=== PATIENT | female | born 1945 | race Caucasian/White ===

== ENCOUNTER 2019-11-28 07:58 | Emergency (ER) | payer MEDICAID, OTHER ==
--- NOTE | 2019-11-28 08:05 | EDM.PDOC ---
ED HPI GENERAL MEDICAL PROBLEM - General Stated Complaint: PAIN IN MID BACK Time Seen by Provider: 11/28/19 08:04 - History of Present Illness INITIAL COMMENTS - FREE TEXT/NARRATIVE: History of present illness: []Patient presents with some right thoracic back pain that is been present for 3 days. She denies any falls or is been no fever chills or cough no difficulty breathing no leg pain or leg swelling movement makes it worse being still makes it better she is tried some Tylenol without any relief. The patient states it is spasm type pain she also tried a massage which did not help. Review of systems: As per history of present illness and below otherwise all systems reviewed and negative. Past medical history: As per history of present illness and as reviewed below otherwise noncontributory. Surgical history: As per history of present illness and as reviewed below otherwise noncontributory. Social history: No reported history of drug or alcohol abuse. Family history: As per history of present illness and as reviewed below otherwise noncontributory. Physical exam: HEENT: Atraumatic, normocephalic, pupils reactive, negative for conjunctival pallor or scleral icterus, mucous membranes moist, throat clear, neck supple, nontender, trachea midline. Lungs: Clear to auscultation, breath sounds equal bilaterally, chest nontender. Heart: S1S2, regular, negative for clicks, rubs, or JVD. No tachycardia Abdomen: Soft, nondistended, nontender. Negative for masses or hepatosplenomegaly. Negative for costovertebral tenderness. Pelvis: Stable nontender. Genitourinary: Deferred. Rectal: Deferred. Extremities: Atraumatic, negative for cords or calf pain. Neurovascular unremarkable. No calf pain no swelling negative Homans sign Neuro: Awake, alert, oriented. Cranial nerves II through XII unremarkable. C erebellum unremarkable. Motor and sensory unremarkable throughout. Exam nonfocal. Back: There is palpable spasm in the paraspinal musculature at the level of T9 and 10 there is no midline tenderness at any level Diagnostics: [] Therapeutics: [] Impression: Thoracic strain [] Plan: Patient will receive 2 mg of Valium in the ED and some Motrin. She be discharged home on Flexeril and a low-dose meloxicam. Follow-up with primary care [] Definitive disposition and diagnosis as appropriate pending reevaluation and review of above. Right Shoulder Pain Score (Numeric/FACES): 8 - Related Data Allergies Allergy/AdvReac Type Severity Reaction Status Date / Time Penicillins Allergy Rash Verified 11/28/19 08:25 Home Meds: Home Meds Cyclobenzaprine [Flexeril] 10 mg PO TID #21 tab 11/28/19 [Rx] Losartan [Cozaar] 100 mg PO DAILY 11/28/19 [History] Meloxicam [Mobic] 7.5 mg PO DAILY 7 Days #7 tablet 11/28/19 [Rx] Montelukast [Singulair] 10 mg PO DAILY 11/28/19 [History] Omeprazole 40 mg PO DAILY 11/28/19 [History] Rosuvastatin [Crestor] 20 mg PO DAILY 11/28/19 [History] buPROPion [Wellbutrin SR] 300 mg PO DAILY 11/28/19 [History] metFORMIN [Glucophage] 500 mg PO BID 11/28/19 [History] ED ROS GENERAL - Review of Systems Review Of Systems: See Below ED EXAM, GENERAL - Physical Exam Exam: See Below Course - Vital Signs Last Recorded V/S: Last Vital Signs Temp 36.5 C 11/28/19 08:16 Pulse 92 11/28/19 08:16 Resp 18 11/28/19 08:16 BP 148/82 H 11/28/19 08:16 Pulse Ox 98 11/28/19 08:16 - Orders/Labs/Meds Meds: Medications Discontinued Medications Generic Name Dose Route Start Last Admin Trade Name Freq PRN Reason Stop Dose Admin Diazepam 2 mg 11/28/19 08:23 Valium PO 11/28/19 08:24 ONETIME ONE Ibuprofen 800 mg 11/28/19 08:23 Motrin PO 11/28/19 08:24 ONETIME ONE Departure - Departure Time of Disposition: 08:29 Disposition: Home, Self-Care 01 Condition: Good Clinical Impression: Thoracic myofascial strain - Discharge Information *PRESCRIPTION DRUG MONITORING PROGRAM REVIEWED*: Not Applicable *COPY OF PRESCRIPTION DRUG MONITORING REPORT IN PATIENT KRIS: Not Applicable Prescriptions: Cyclobenzaprine [Flexeril] 10 mg PO TID #21 tab Meloxicam [Mobic] 7.5 mg PO DAILY 7 Days #7 tablet Instructions: Acute Back Pain, Adult Additional Instructions: The following information is given to patients seen in the emergency department who are being discharged to home. This information is to outline your options for follow-up care. We provide all patients seen in our emergency department with a follow-up referral. The need for follow-up, as well as the timing and circumstances, are variable depending upon the specifics of your emergency department visit. If you don't have a primary care physician on staff, we will provide you with a referral. We always advise you to contact your personal physician following an emergency department visit to inform them of the circumstance of the visit and for follow-up with them and/or the need for any referrals to a consulting specialist. The emergency department will also refer you to a specialist when appropriate. This referral assures that you have the opportunity for follow-up care with a specialist. All of these measure are taken in an effort to provide you with optimal care, which includes your follow-up. Under all circumstances we always encourage you to contact your private physician who remains a resource for coordinating your care. When calling for follow-up care, please make the office aware that this follow-up is from your recent emergency room visit. If for any reason you are refused follow-up, please contact the [facility] Emergency Department at and asked to speak to the emergency department charge nurse. Sepsis Event Note (ED) - Focused Exam Vital Signs: Vital Signs Temp Pulse Resp BP Pulse Ox 11/28/19 08:16 36.5 C 92 18 148/82 H 98
[2019-11-28] MEDS ORDERED: Diazepam 2 MG Tab PO ONE (08:23)
[2019-11-28] MEDS ORDERED: Ibuprofen 800 MG Tab PO ONE (08:23)
== END 2019-11-28 08:52 | disposition home or self-care (01) ==
LOC: MW.ED 07:58
DX: S29.012A Strain of muscle and tendon of back wall of thorax, initial encounter (principal); Z88.0 Allergy status to penicillin; Z79.899 Other long term (current) drug therapy; X58.XXXA Exposure to other specified factors, initial encounter
CPT/HCPCS: 99283; A9270

== ENCOUNTER 2021-01-24 20:53 | Emergency (ER) | payer MEDICAID, OTHER ==
[2021-01-24] MEDS ORDERED: Dexamethasone 10 MG/ML SDV IVPUSH ONE (21:07)
--- NOTE | 2021-01-24 21:10 | EDM.PDOC ---
ED HPI GENERAL MEDICAL PROBLEM - General Chief Complaint: Chest Pain Stated Complaint: FAST HEART RATE, SHORT OF BREATH Time Seen by Provider: 01/24/21 20:55 Source of Information: Reports: Patient History Limitations: Reports: No Limitations - History of Present Illness INITIAL COMMENTS - FREE TEXT/NARRATIVE: Patient is a 75-year-old female history of diabetes high blood pressure and COPD presents today for shortness of breath. Patient says she also felt some palpitations felt her heart was beating faster than normal prompting her to come in. States she had some pressure-like feeling in her chest but denies any pain. Patient denies any cough fever chills at this tachycardic and short of breath came on very suddenly. Patient denies any abdominal pain nausea vomiting or urinary symptoms. Chest Pain Score (Numeric/FACES): 3 - Related Data Allergies Allergy/AdvReac Type Severity Reaction Status Date / Time Penicillins Allergy Rash Verified 01/24/21 21:02 Home Meds: Home Meds Cyclobenzaprine [Flexeril] 10 mg PO TID #21 tab 11/28/19 [Rx] Losartan [Cozaar] 100 mg PO DAILY 11/28/19 [History] Meloxicam [Mobic] 7.5 mg PO DAILY 7 Days #7 tablet 11/28/19 [Rx] Montelukast [Singulair] 10 mg PO DAILY 11/28/19 [History] Omeprazole 40 mg PO DAILY 11/28/19 [History] Rosuvastatin [Crestor] 20 mg PO DAILY 11/28/19 [History] buPROPion [Wellbutrin SR] 300 mg PO DAILY 11/28/19 [History] hydroCHLOROthiazide [Hydrochlorothiazide] 25 mg PO DAILY 11/28/19 [History] metFORMIN [Glucophage] 500 mg PO BID 11/28/19 [History] Past Medical History HEENT History: Reports: None Cardiovascular History: Reports: Hypertension Respiratory History: Reports: COPD Gastrointestinal History: Reports: None Genitourinary History: Reports: None [employer] History: Reports: None Musculoskeletal History: Reports: None Neurological History: Reports: None Psychiatric History: Reports: None Endocrine/Metabolic History: Reports: Diabetes, Type II Hematologic History: Reports: None Immunologic History: Reports: None Oncologic (Cancer) History: Reports: Renal Dermatologic History: Reports: None - Infectious Disease History Infectious Disease History: Reports: Chicken Pox, Measles Social & Family History - Tobacco Use Second Hand Smoke Exposure: No - Caffeine Use Caffeine Use: Reports: None - Recreational Drug Use Recreational Drug Use: No ED ROS GENERAL - Review of Systems Review Of Systems: See Below Constitutional: Reports: No Symptoms HEENT: Reports: No Symptoms Respiratory: Reports: Shortness of Breath Cardiovascular: Reports: Palpitations Endocrine: Reports: No Symptoms GI/Abdominal: Reports: No Symptoms : Reports: No Symptoms Musculoskeletal: Reports: No Symptoms Skin: Reports: No Symptoms Neurological: Reports: No Symptoms Psychiatric: Reports: No Symptoms Hematologic/Lymphatic: Reports: No Symptoms Immunologic: Reports: No Symptoms ED EXAM, GENERAL - Physical Exam Exam: See Below Exam Limited By: No Limitations General Appearance: Alert, WD/WN, No Apparent Distress Ears: Normal External Exam Nose: Normal Inspection Throat/Mouth: Normal Inspection Head: Atraumatic, Normocephalic Neck: Normal Inspection Respiratory/Chest: Lungs Clear, Normal Breath Sounds Cardiovascular: Normal Peripheral Pulses, Regular Rate, Rhythm, No Edema GI/Abdominal: Normal Bowel Sounds, Soft, Non-Tender Back Exam: Normal Inspection Extremities: Normal Inspection, Normal Range of Motion Neurological: Alert, Oriented, Normal Cognition, Normal Gait #1 Interpretation EKG Date: 01/24/21 Time: 21:00 Rhythm: Other (sinus tachy) Rate (Beats/Min): 119 ST-T: Normal Course - Vital Signs Last Recorded V/S: Last Vital Signs Temp 97.8 F 01/24/21 20:59 Pulse 106 H 01/24/21 22:45 Resp 16 01/24/21 22:45 BP 169/65 H 01/24/21 22:45 Pulse Ox 91 L 01/24/21 22:45 - Orders/Labs/Meds Orders: Active Orders 24 hr Category Date Time Status RT Aerosol Therapy [RC] ASDIRECTED Care 01/24/21 23:01 Active Labs: Laboratory Tests 01/24/21 01/24/21 01/24/21 Range/Units 21:00 21:00 21:00 WBC 10.29 (4.0-11.0) K/uL RBC 4.45 (4.30-5.90) M/uL Hgb 12.4 (12.0-16.0) g/dL Hct 37.6 (36.0-46.0) % MCV 84.5 (80.0-98.0) fL MCH 27.9 (27.0-32.0) pg MCHC 33.0 (31.0-37.0) g/dL RDW Std Deviation 42.2 (28.0-62.0) fl RDW Coeff of Denise 14 (11.0-15.0) % Plt Count 302 (150-400) K/uL MPV 10.90 (7.40-12.00) fL Neut % (Auto) 64.1 (48.0-80.0) % Lymph % (Auto) 24.6 (16.0-40.0) % [place] % (Auto) 7.7 (0.0-15.0) % Eos % (Auto) 3.1 (0.0-7.0) % Baso % (Auto) 0.5 (0.0-1.5) % Neut # (Auto) 6.6 H (1.4-5.7) K/uL Lymph # (Auto) 2.5 H (0.6-2.4) K/uL [place] # (Auto) 0.8 (0.0-0.8) K/uL Eos # (Auto) 0.3 (0.0-0.7) K/uL Baso # (Auto) 0.1 (0.0-0.1) K/uL Nucleated RBC % 0.0 /100WBC Nucleated RBCs # 0 K/uL INR 1.00 APTT 22.5 (18.6-31.3) SEC D-Dimer, Quantitative 0.35 (0.0-0.50) mg/L FEU Sodium 138 (136-145) mmol/L Potassium 4.4 (3.5-5.1) mmol/L Chloride 101 (98-107) mmol/L Carbon Dioxide 28.4 (21.0-32.0) mmol/L BUN 20 H (7.0-18.0) mg/dL Creatinine 1.2 H (0.6-1.0) mg/dL Est Cr Clr Drug Dosing 32.53 mL/min Estimated GFR (MDRD) 43.9 ml/min Glucose 180 H (74-106) mg/dL Lactic Acid (0.4-2.0) mmol/L Calcium 9.0 (8.5-10.1) mg/dL Phosphorus 4.1 (2.6-4.7) mg/dL Magnesium 1.3 L (1.8-2.4) mg/dL Total Bilirubin 0.2 (0.2-1.0) mg/dL AST 11 L (15-37) IU/L ALT 23 (14-63) IU/L Alkaline Phosphatase 99 (46-116) U/L Creatine Kinase 42 (26-308) U/L Troponin I < 0.050 (0.000-0.056) ng/mL Total Protein 7.2 (6.4-8.2) g/dL Albumin 3.7 (3.4-5.0) g/dL Globulin 3.5 (2.6-4.0) g/dL Albumin/Globulin Ratio 1.1 (0.9-1.6) Lipase 270 (73-393) U/L SARS-CoV-2 RNA ([place]) (NEGATIVE) 01/24/21 01/24/21 Range/Units 21:04 21:15 WBC (4.0-11.0) K/uL RBC (4.30-5.90) M/uL Hgb (12.0-16.0) g/dL Hct (36.0-46.0) % MCV (80.0-98.0) fL MCH (27.0-32.0) pg MCHC (31.0-37.0) g/dL RDW Std Deviation (28.0-62.0) fl RDW Coeff of Denise (11.0-15.0) % Plt Count (150-400) K/uL MPV (7.40-12.00) fL Neut % (Auto) (48.0-80.0) % Lymph % (Auto) (16.0-40.0) % [place] % (Auto) (0.0-15.0) % Eos % (Auto) (0.0-7.0) % Baso % (Auto) (0.0-1.5) % Neut # (Auto) (1.4-5.7) K/uL Lymph # (Auto) (0.6-2.4) K/uL [place] # (Auto) (0.0-0.8) K/uL Eos # (Auto) (0.0-0.7) K/uL Baso # (Auto) (0.0-0.1) K/uL Nucleated RBC % /100WBC Nucleated RBCs # K/uL INR APTT (18.6-31.3) SEC D-Dimer, Quantitative (0.0-0.50) mg/L FEU Sodium (136-145) mmol/L Potassium (3.5-5.1) mmol/L Chloride (98-107) mmol/L Carbon Dioxide (21.0-32.0) mmol/L BUN (7.0-18.0) mg/dL Creatinine (0.6-1.0) mg/dL Est Cr Clr Drug Dosing mL/min Estimated GFR (MDRD) ml/min Glucose (74-106) mg/dL Lactic Acid 1.9 (0.4-2.0) mmol/L Calcium (8.5-10.1) mg/dL Phosphorus (2.6-4.7) mg/dL Magnesium (1.8-2.4) mg/dL Total Bilirubin (0.2-1.0) mg/dL AST (15-37) IU/L ALT (14-63) IU/L Alkaline Phosphatase (46-116) U/L Creatine Kinase (26-308) U/L Troponin I (0.000-0.056) ng/mL Total Protein (6.4-8.2) g/dL Albumin (3.4-5.0) g/dL Globulin (2.6-4.0) g/dL Albumin/Globulin Ratio (0.9-1.6) Lipase (73-393) U/L SARS-CoV-2 RNA ([place]) NEGATIVE (NEGATIVE) Meds: Medications Discontinued Medications Generic Name Dose Route Start Last Admin Trade Name Freq PRN Reason Stop Dose Admin Albuterol/Ipratropium 3 ml 01/24/21 23:00 01/24/21 23:06 Albuterol/Ipratropium 3.0-0.5 Mg/3 Ml Neb Soln NEB 01/24/21 23:01 3 ml ONETIME ONE Administration Dexamethasone 10 mg 01/24/21 21:07 01/24/21 21:15 Dexamethasone 10 Mg/Ml Sdv IVPUSH 01/24/21 21:08 10 mg ONETIME ONE Administration Iopamidol 50 ml 01/24/21 22:01 01/24/21 22:03 Iopamidol 755 Mg/Ml 500 Ml Multipack Bottle IVPUSH 01/24/21 22:02 50 ml ONETIME STA Administration - Re-Assessments/Exams Free Text/Narrative Re-Assessment/Exam: 01/24/21 23:01 Patient is nontachycardic after liter fluids. Patient also satting 95 to 96% on room air. Also previous smoker which should be baseline for her. Patient looks well PE study is negative will likely discharge home now. 01/24/21 23:23 Patient remains well now 700% after neb treatment will be discharged home. Departure - Departure Time of Disposition: 23:24 Disposition: Home, Self-Care 01 Condition: Good Clinical Impression: Small airways disease Instructions: Shortness of Breath, Adult, [id number] Referrals: PCP,Not In Area [Primary Care Provider] - Forms: ED Department Discharge Additional Instructions: You were seen today for shortness of breath and increased heart rate. After given a liter IV fluids your heart rate is improved likely related to dehydration. Your oxygen level is also at his baseline at the we gave you steroids this may be related to your asthma or COPD. We recommend follow-up with your primary care physician if you have any other concerning signs or symptoms please return to ED immediately. The following information is given to patients seen in the emergency department who are being discharged to home. This information is to outline your options for follow-up care. We provide all patients seen in our emergency department with a follow-up referral. The need for follow-up, as well as the timing and circumstances, are variable depending upon the specifics of your emergency department visit. If you don't have a primary care physician on staff, we will provide you with a referral. We always advise you to contact your personal physician following an emergency department visit to inform them of the circumstance of the visit and for follow-up with them and/or the need for any referrals to a consulting specialist. The emergency department will also refer you to a specialist when appropriate. This referral assures that you have the opportunity for follow-up care with a specialist. All of these measure are taken in an effort to provide you with optimal care, which includes your follow-up. Under all circumstances we always encourage you to contact your private physician who remains a resource for coordinating your care. When calling for follow-up care, please make the office aware that this follow-up is from your recent emergency room visit. If for any reason you are refused follow-up, please contact the [facility] Emergency Department at and asked to speak to the emergency department charge nurse. Please follow up with your primary care physician. If you do not have a primary care physician, see below: [facility] [id number], [place] [address] [facility] [address] [place] [address] Sepsis Event Note (ED) - Evaluation Sepsis Screening Result: No Definite Risk - Focused Exam Vital Signs: Vital Signs Temp Pulse Resp BP Pulse Ox 01/24/21 22:45 106 H 16 169/65 H 91 L 01/24/21 20:59 97.8 F 127 H 22 H 179/121 H 88 L - My Orders Last 24 Hours: My Active Orders 01/24/21 23:01 RT Aerosol Therapy [RC] ASDIRECTED - Assessment/Plan Last 24 Hours: My Active Orders 01/24/21 23:01 RT Aerosol Therapy [RC] ASDIRECTED Plan: Patient is a 75-year-old female history of high blood pressure diabetes COPD presents today for palpitations and shortness of breath. Patient was satting 80% room air was placed on 3 L and now is in 100%. Patient looks well no respiratory distress lungs are clear. She is tachycardic to the 120s but EKG shows sinus tach. Will obtain labs possible CT to rule out PE and Covid test.
[2021-01-24 21:37] LABS: BLOOD UREA NITROGEN,BUN 20 mg/dL (7.0-18.0); CARBON DIOXIDE,CO2 28.4 mmol/L (21.0-32.0); CHLORIDE,CL 101 mmol/L (98-107); GLUCOSE RANDOM 180 mg/dL (74-106); LIPASE 270 U/L (73-393); POTASSIUM,K 4.4 mmol/L (3.5-5.1); SODIUM,NA 138 mmol/L (136-145)
[2021-01-24] MEDS ORDERED: Iopamidol 755 MG/ML 500 ML Multipack Bottle IVPUSH STA (22:01)
--- NOTE | 2021-01-24 22:45 | CT ---
Indication: Tachycardia Technique: Contrast CT PE 50 mL Isovue 370. Comparison: No comparison Findings: Normal caliber thoracic aorta. No pulmonary emboli. Heart size is normal. No significant pericardial effusion. No mediastinal adenopathy. Mosaic attenuation. Basilar mild atelectasis no effusion. No suspicious bony lesions. Impression: 1. No pulmonary emboli. Mosaic attenuation most commonly seen with small airways disease. Please note that all CT scans at this facility use dose modulation, iterative reconstruction, and/or weight-based dosing when appropriate to reduce radiation dose to as low as reasonably achievable. Dictated by Jocelyn Beck MD @ 01/24/2021 10:44:12 PM (Electronically Signed)
--- NOTE | 2021-01-24 22:56 | CR ---
INDICATION: Shortness of breath TECHNIQUE: Single view chest. FINDINGS: The lungs are clear. The heart, mediastinum and pulmonary vessels are of normal size. There is no evidence of pleural disease. IMPRESSION: Negative chest. Dictated by Jocelyn Beck MD @ 01/24/2021 10:55:53 PM (Electronically Signed)
[2021-01-24] MEDS ORDERED: Albuterol/Ipratropium 3.0-0.5 MG/3 ML Neb Soln NEB ONE (23:00)
== END 2021-01-24 23:33 | disposition home or self-care (01) ==
LOC: MW.ED 20:53
DX: J66.8 Airway disease due to other specific organic dusts (principal); J44.9 Chronic obstructive pulmonary disease, unspecified; E11.9 Type 2 diabetes mellitus without complications; I10 Essential (primary) hypertension; Z88.0 Allergy status to penicillin; Z79.84 Long term (current) use of oral hypoglycemic drugs; Z79.899 Other long term (current) drug therapy; Z20.822 Contact with and (suspected) exposure to COVID-19
CPT/HCPCS: 36415; 71045; 71275; 80053; 82550; 83605; 83690; 83735; 84100; 84484; 85025; 85379; 85610; 85730; 96374; 99285; J1100; Q9967; U0002; J7620-GY

== ENCOUNTER 2021-02-15 16:07 | Emergency (ER) | payer MEDICAID, OTHER ==
--- NOTE | 2021-02-15 16:25 | EDM.PDOC ---
ED HPI GENERAL MEDICAL PROBLEM - General Chief Complaint: Back Pain or Injury Stated Complaint: BACK SPASMS Time Seen by Provider: 02/15/21 16:08 Source of Information: Reports: Patient History Limitations: Reports: No Limitations - History of Present Illness INITIAL COMMENTS - FREE TEXT/NARRATIVE: 75F presents for back spasm pain. Patient notes history of similar in the past which is responded well to Flexeril. She states that the pain started last night. It is in her left middle back. It is waxing and waning in intensity and sometimes goes away completely. She describes it as muscle spasm pain. Does not radiate to the abdomen. No urinary symptoms. Denies dysuria, hematuria, urinary incontinence. Denies any associated muscle weakness. Middle Back Pain Score (Numeric/FACES): 8 - Related Data Allergies Allergy/AdvReac Type Severity Reaction Status Date / Time Penicillins Allergy Rash Verified 02/15/21 16:17 Home Meds: Home Meds Losartan [Cozaar] 100 mg PO DAILY 11/28/19 [History] Montelukast [Singulair] 10 mg PO DAILY 11/28/19 [History] Omeprazole 40 mg PO DAILY 11/28/19 [History] Rosuvastatin [Crestor] 20 mg PO DAILY 11/28/19 [History] buPROPion [Wellbutrin SR] 300 mg PO DAILY 11/28/19 [History] hydroCHLOROthiazide [Hydrochlorothiazide] 25 mg PO DAILY 11/28/19 [History] metFORMIN [Glucophage] 500 mg PO BID 11/28/19 [History] Past Medical History HEENT History: Reports: None Cardiovascular History: Reports: Hypertension Respiratory History: Reports: COPD Gastrointestinal History: Reports: None Genitourinary History: Reports: None [employer]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 Musculoskeletal History: Reports: None Neurological History: Reports: None Psychiatric History: Reports: None Endocrine/Metabolic History: Reports: Diabetes, Type II Hematologic History: Reports: None Immunologic History: Reports: None Oncologic (Cancer) History: Reports: Renal Dermatologic History: Reports: None - Infectious Disease History Infectious Disease History: Reports: Chicken Pox, Measles Social & Family History - Family History Family Medical History: No Pertinent Family History - Caffeine Use Caffeine Use: Reports: None ED ROS GENERAL - Review of Systems Review Of Systems: Comprehensive ROS is negative, except as noted in HPI. ED EXAM, GENERAL - Physical Exam Exam: See Below Exam Limited By: No Limitations General Appearance: Alert, WD/WN, No Apparent Distress Ears: Hearing Grossly Normal Throat/Mouth: Normal Voice, No Airway Compromise Head: Atraumatic, Normocephalic Neck: Normal Inspection Respiratory/Chest: No Respiratory Distress, Lungs Clear, Normal Breath Sounds, No Accessory Muscle Use Cardiovascular: Normal Peripheral Pulses, Regular Rate, Rhythm Back Exam: Normal Inspection Extremities: Normal Inspection Neurological: Alert, Normal Cognition, Normal Gait Psychiatric: Normal Affect, Normal Mood Skin Exam: Warm, Dry, Intact, Normal Color Course - Vital Signs Last Recorded V/S: Last Vital Signs Temp 96.7 F L 02/15/21 16:19 Pulse 79 02/15/21 16:19 Resp 16 02/15/21 16:19 BP 158/60 H 02/15/21 16:19 Pulse Ox 98 02/15/21 16:19 - Orders/Labs/Meds Meds: Medications Discontinued Medications Generic Name Dose Route Start Last Admin Trade Name Edyta PRN Reason Stop Dose Admin Acetaminophen 1,000 mg 02/15/21 16:27 02/15/21 16:36 Acetaminophen 500 Mg Tab PO 02/15/21 16:28 1,000 mg ONETIME ONE Administration Cyclobenzaprine HCl 10 mg 02/15/21 16:27 02/15/21 16:37 Cyclobenzaprine 10 Mg Tab PO 02/15/21 16:28 10 mg ONETIME ONE Administration - Re-Assessments/Exams Free Text/Narrative Re-Assessment/Exam: 02/15/21 16:28 We will treat for symptomatic spasms with Tylenol and Flexeril. 02/15/21 16:48 Patient states she is starting to feel better. Will discharge with a short prescription for Flexeril. Advised patient to follow-up with her primary medical provider. Return precautions were discussed. Departure - Departure Time of Disposition: 16:49 Disposition: Home, Self-Care 01 Condition: Good Clinical Impression: Muscle spasm - Discharge Information Instructions: Muscle Cramps and Spasms, [id number] Referrals: PCP,None [Primary Care Provider] - Forms: ED Department Discharge Additional Instructions: Your prescription was sent to [facility]. Please follow-up with your primary care physician. If you have any concerning symptoms develop then please come back to the emergency department. The following information is given to patients seen in the emergency department who are being discharged to home. This information is to outline your options for follow-up care. We provide all patients seen in our emergency department with a follow-up referral. The need for follow-up, as well as the timing and circumstances, are variable depending upon the specifics of your emergency department visit. If you don't have a primary care physician on staff, we will provide you with a referral. We always advise you to contact your personal physician following an emergency department visit to inform them of the circumstance of the visit and for follow-up with them and/or the need for any referrals to a consulting specialist. The emergency department will also refer you to a specialist when appropriate. This referral assures that you have the opportunity for follow-up care with a specialist. All of these measure are taken in an effort to provide you with optimal care, which includes your follow-up. Under all circumstances we always encourage you to contact your private ysician who remains a resource for coordinating your care. When calling for follow-up care, please make the office aware that this follow-up is from your recent emergency room visit. If for any reason you are refused follow-up, please contact the [facility] Emergency Department at and asked to speak to the emergency department charge nurse. Please follow up with your primary care physician. If you do not have a primary care physician, see below: [facility] [address] [place] [id number] [facility] [address] [place] [id number] [facility] [address] [place] [id number] Sepsis Event Note (ED) - Evaluation Sepsis Screening Result: No Definite Risk - Focused Exam Vital Signs: Vital Signs Temp Pulse Resp BP Pulse Ox 02/15/21 16:19 96.7 F L 79 16 158/60 H 98
[2021-02-15] MEDS ORDERED: Cyclobenzaprine 10 MG Tab PO ONE (16:27)
[2021-02-15] MEDS ORDERED: Acetaminophen 500 MG Tab PO ONE (16:27)
== END 2021-02-15 16:57 | disposition home or self-care (01) ==
LOC: MW.ED 16:07
DX: M62.830 Muscle spasm of back (principal); I10 Essential (primary) hypertension; J44.9 Chronic obstructive pulmonary disease, unspecified; E11.9 Type 2 diabetes mellitus without complications; Z88.0 Allergy status to penicillin; Z79.84 Long term (current) use of oral hypoglycemic drugs; Z79.899 Other long term (current) drug therapy
CPT/HCPCS: 99283; A9270

== ENCOUNTER 2023-09-27 21:20 | Emergency (ER) | payer BC, MEDICARE ==
[2023-09-27] MEDS: Sodium Chloride 0.9% 2.5 ML Syringe FLUSH PRN (22:11)
[2023-09-27] MEDS: Sodium Chloride 0.9% 10 ML Syringe FLUSH PRN (22:11)
[2023-09-27 22:17] LABS: BASOPHILS ABSOLUTE AUTO 0.06 K/uL (0.00-0.20); BASOPHILS PERCENT AUTO 0.5 % (0.0-1.0); EOSINOPHILS ABSOLUTE AUTO 0.61 K/uL (0.00-0.45); EOSINOPHILS PERCENT AUTO 5.6 % (0.0-6.0); HEMATOCRIT 37.1 % (37.0-47.0); HEMOGLOBIN 12.3 g/dL (12.0-16.0); IMMATURE GRAN ABSOLUTE AUTO 0.02 K/uL (0.00-0.05); IMMATURE GRAN PERCENT AUTO 0.2 % (0.0-0.4); LYMPHOCYTES ABSOLUTE AUTO 2.58 K/uL (1.00-4.80); LYMPHOCYTES PERCENT AUTO 23.6 % (24.0-44.0); MEAN CORPUSCULAR HEMOGLOBIN 27.3 pg (28.0-32.0); MEAN CORPUSCULAR HGB CONC 33.2 g/dL (32.0-36.0); MEAN CORPUSCULAR VOLUME 82.4 fL (83.0-99.0); MEAN PLATELET VOLUME 10.3 fL (9.4-12.3); MONOCYTES ABSOLUTE AUTO 0.77 K/uL (0.00-0.80); MONOCYTES PERCENT AUTO 7.1 % (0.0-8.0); NEUTROPHILS ABSOLUTE AUTO 6.87 K/uL (1.80-7.70); PLATELET COUNT,PLT 259 K/uL (150-400); WHITE BLOOD CELL COUNT,WBC 10.91 K/uL (3.9-11.3)
[2023-09-27 22:18] LABS: APPEARANCE,URINE CLEAR; BILIRUBIN,URINE NEGATIVE (NEGATIVE); COLOR,URINE YELLOW; GLUCOSE,URINE >=1000 mg/dL (NEGATIVE); KETONES,URINE NEGATIVE (NEGATIVE); LEUKOCYTE ESTERASE,URINE NEGATIVE (NEGATIVE); NITRITE,URINE NEGATIVE (NEGATIVE); OCCULT BLOOD,URINE NEGATIVE (NEGATIVE); PH,URINE 5.5 (5.0-8.0); PROTEIN,URINE NEGATIVE (NEGATIVE); UROBILINOGEN,URINE 0.2 EU/dL (<2.0)
[2023-09-27 22:30] LABS: INR 0.99 (0.86-1.11)
[2023-09-27 22:49] LABS: A/G RATIO 1.2 (0.9-1.6); ALBUMIN 3.7 g/dL (3.4-5.0); BILIRUBIN TOTAL 0.4 mg/dL (0.2-1.0); CALCIUM 9.5 mg/dL (8.5-10.1); CARBON DIOXIDE,CO2 25.6 mmol/L (21.0-32.0); CREATININE 1.3 mg/dL (0.6-1.0); EST CRCL DRUG DOSING (CG) 28.66 mL/min; POTASSIUM,K 3.9 mmol/L (3.5-5.1); PROTEIN TOTAL,TP 6.8 g/dL (6.4-8.2)
[2023-09-27] MEDS: Iopamidol 755 MG/ML 500 ML Multipack Bottle IVPUSH STA (23:17)
[2023-09-28] MEDS: Ketorolac 30 MG/ML SDV IVPUSH ONE (02:39)
[2023-09-28] MEDS: Sodium Chloride 0.9% 500 ML IV SCH (02:39)
[2023-09-28] MEDS: Alum Hydro/Mag Hydro/Simeth XS 15 ML, Lidocaine 2% 5 ML PO ONE (02:39)
== END 2023-09-28 04:46 | disposition home or self-care (01) ==
LOC: MW.ED 21:20
DX: M54.6 Pain in thoracic spine (principal); I10 Essential (primary) hypertension; J44.9 Chronic obstructive pulmonary disease, unspecified; E11.9 Type 2 diabetes mellitus without complications; Z79.84 Long term (current) use of oral hypoglycemic drugs; Z79.899 Other long term (current) drug therapy; Z88.0 Allergy status to penicillin
CPT/HCPCS: 36415; 71275; 74174; 80053; 81003; 83690; 84484; 85025; 85610; 93005; 96374; 96375; 96376; 99284; A9270; J1885; J3360; J3490; J7040; Q9967; 93010

== ENCOUNTER 2024-02-07 06:48 | Day surgery (SDC) | payer MEDICARE ==
[2024-02-07] MEDS ORDERED: propofoL 500 MG/50 ML 50 ML ONE (07:19)
[2024-02-07] MEDS: Lactated Ringers 1,000 ML IV SCH (07:20)
[2024-02-07] MEDS ORDERED: Lactated Ringers 1,000 ML IV SCH (08:45)
== END 2024-02-07 09:05 | disposition home or self-care (01) ==
LOC: MW.SDS 06:48
PROVIDERS: ATTEND Surgery
DX: Z12.11 Encounter for screening for malignant neoplasm of colon (principal); K57.30 Diverticulosis of large intestine without perforation or abscess without bleeding; Z86.0100 Personal history of colon polyps, unspecified; E11.9 Type 2 diabetes mellitus without complications; I10 Essential (primary) hypertension; J44.9 Chronic obstructive pulmonary disease, unspecified; H35.349 Macular cyst, hole, or pseudohole, unspecified eye; Z87.891 Personal history of nicotine dependence; Z79.899 Other long term (current) drug therapy; Z88.0 Allergy status to penicillin
CPT/HCPCS: 45378; 82947; J2704; J7120